=== PATIENT | female | born 1990 | race American Indian/Alaskan Native ===

== ENCOUNTER 2020-12-31 10:58 | Outpatient (CLI) | payer OTHER ==
--- NOTE | 2020-12-31 13:31 | XRay Report ---
BILATERAL HAND HISTORY: Pain. COMPARISON: None. TECHNIQUE: 2 views of the bilateral hands were obtained. FINDINGS: Bones: No fracture or dislocation. Joint spaces: Maintained. Soft tissues: No significant abnormality. Additional findings: None. IMPRESSION: Unremarkable radiographs of the bilateral hands. No evidence of acute osseous injury or significant d egenerative change. Signer Name: Steve Uribe MD Signed: 12/31/2020 1:26 PM Workstation Name: [id number]
--- NOTE | 2020-12-31 13:40 | XRay Report ---
BILATERAL KNEES HISTORY: Pain COMPARISON: None. TECHNIQUE: 2 views of each knee were obtained. FINDINGS: Bones: No fracture or dislocation. Joint spaces: Maintained. Soft tissues: No significant abnormality. Additional findings: None. IMPRESSION: Unremarkable bilateral knee radiographs. No evidence of acute osseous injury or significant degenerat frankie change. Signer Name: Steve Uribe MD Signed: 12/31/2020 1:35 PM Workstation Name: [id number]
--- NOTE | 2020-12-31 13:42 | XRay Report ---
LUMBAR SPINE HISTORY: Lower back pain. COMPARISON: None. TECHNIQUE: 3 view(s) of the lumbar spine obtained. FINDINGS: Vertebrae: No evidence for vertebral body fracture or subluxation. There is marked levoconvex curvatu re of the lower thoracic and lumbar spine centered at L2. Suspected transitional anatomy at L5 on the left. Disc Spaces:No significant abnormality. Facet Joints:No significant abnormality. Prevertebral Soft Tissues:No significant abnormality. Additional findings: None. IMPRESSION: Lumbar spine without evidence of acute osseous injury. 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 Suspected transitional anatomy on the left at L5. This is a normal anatomic variant, but can be a chris rce of pain. If pain persists or additional evaluation is clinically indicated, consider MRI. Signer Name: Steve Uribe MD Signed: 12/31/2020 1:37 PM Workstation Name: [id number]
== END 2020-12-31 10:59 | disposition home or self-care (01) ==
LOC: XRAY 10:58
PROVIDERS: ATTEND Internal Medicine
DX: M47.817 Spondylosis without myelopathy or radiculopathy, lumbosacral region (principal); M25.562 Pain in left knee; M25.561 Pain in right knee; M79.642 Pain in left hand; M79.641 Pain in right hand
CPT/HCPCS: 72100